=== PATIENT | female | born 1955 | race Caucasian/White ===

== ENCOUNTER → 2016-10-10 | Outpatient (CLI) | payer BC ==
--- NOTE | 2016-10-12 11:02 | MM ---
Reason for exam: screening (asymptomatic). Last mammogram was performed 1 year and 3 months ago. History: Patient is postmenopausal. Physical Findings: A clinical breast exam by your physician is recommended on an annual basis and results should be correlated with mammographic findings. MG Screening Mammo w CAD Bilateral CC and MLO view(s) were taken. Prior study comparison: July 12, 2015, bilateral MG screening mammo w CAD. July 16, 2014, mammogram, performed at [facility]. The breast tissue is heterogeneously dense. This may lower the sensitivity of mammography. There is no discrete abnormality. ASSESSMENT: Negative, BI-RAD 1 RECOMMENDATION: Routine screening mammogram of both breasts in 1 year.
== END | disposition home or self-care (01) ==
LOC: RADMAMWWP 15:32
PROVIDERS: ATTEND Family Medicine
DX: Z12.31 Encounter for screening mammogram for malignant neoplasm of breast (principal)

== ENCOUNTER → 2017-10-29 | Outpatient (CLI) | payer BC ==
--- NOTE | 2017-10-30 08:18 | BD ---
EXAMINATION TYPE: Axial Bone Density DATE OF EXAM: 10/29/2017 COMPARISON: NONE CLINICAL HISTORY: Asymptomatic menopausal state, Z 78.0 Height: 5 FT 2 IN Weight: 150 FRAX RISK QUESTIONS: Family History (Parent hip fracture): UNKNOWN Secondary Osteoporosis: RISK FACTORS HISTORY OF: Active: YES Postmenopausal woman: AGE 56 MEDICATIONS: Additional Medications: NONE Additional History: EXAM MEASUREMENTS: Bone mineral densitometry was performed using the [employer] System. Bone mineral density as measured about the Lumbar spine is: ----- L1-L4(G/cm2): 0.991 T Score Values are as follows: ----- L2: -2.0 ----- L3: -1.0 ----- L4: -1.1 ----- L1-L4: -1.6 BASELINE Bone mineral density about the R hip (g/cm2): 0.791 Bone mineral density about the L hip (g/cm2): 0.772 T Score values are as follows: -----R Neck: -1.8 -----L Neck: -1.9 -----R Total: -2.3 -----L Total: -2.4 BASELINE IMPRESSION: Osteopenia Osteopenia (T Score between -2.5 and 1). There is slightly increased risk of fracture and patient may be considered for treatment. Re-Screen 2-5 years. NOTE: T-SCORE=SD OF THE YOUNG ADULT MEAN.
--- NOTE | 2017-10-30 14:01 | MM ---
Reason for exam: screening (asymptomatic). Last mammogram was performed 1 year and 1 month ago. History: Patient is postmenopausal. Physical Findings: A clinical breast exam by your physician is recommended on an annual basis and results should be correlated with mammographic findings. MG Screening Mammo w CAD Bilateral CC and MLO view(s) were taken. Prior study comparison: October 10, 2016, bilateral MG screening mammo w CAD. July 12, 2015, bilateral MG screening mammo w CAD. The breast tissue is heterogeneously dense. This may lower the sensitivity of mammography. No significant changes when compared with prior studies. ASSESSMENT: Benign, BI-RAD 2 RECOMMENDATION: Routine screening mammogram of both breasts in 1 year.
== END | disposition home or self-care (01) ==
LOC: RADMAMWWP 15:16
PROVIDERS: ATTEND Family Medicine
DX: Z12.31 Encounter for screening mammogram for malignant neoplasm of breast (principal); M85.89 Other specified disorders of bone density and structure, multiple sites; Z78.0 Asymptomatic menopausal state
CPT/HCPCS: 77067; 77080

== ENCOUNTER → 2018-11-29 | Outpatient (CLI) | payer BC ==
[2018-11-29 12:14] LABS: Ionized Calcium 5.6 mg/dL (4.5-5.3)
[2018-11-29 12:26] LABS: ALT 30 U/L (9-52); AST 28 U/L (14-36); African American GFR (CKD) >90 (>60 ml/min/1.73 sqM); Albumin 4.9 g/dL (3.5-5.0); Alkaline Phosphatase 69 U/L (38-126); Anion Gap 10 mmol/L; Blood Urea Nitrogen 14 mg/dL (7-17); Calcium 10.8 mg/dL (8.4-10.2); Carbon Dioxide 25 mmol/L (22-30); Chloride 105 mmol/L (98-107); Glucose 98 mg/dL (74-99); Potassium 4.5 mmol/L (3.5-5.1); Sodium 140 mmol/L (137-145); Total Bilirubin 0.5 mg/dL (0.2-1.3); Total Protein 8.4 g/dL (6.3-8.2)
[2018-12-02 20:22] LABS: Protein, Total 7.5 g/dL (6.2-8.2)
--- NOTE | 2018-12-03 08:27 | MM ---
Reason for exam: screening (asymptomatic). Last mammogram was performed 1 year and 1 month ago. History: Patient is postmenopausal. Benign excisional biopsy of the right breast. Physical Findings: A clinical breast exam by your physician is recommended on an annual basis and results should be correlated with mammographic findings. MG Screening Mammo w CAD Bilateral CC and MLO view(s) were taken. Prior study comparison: October 29, 2017, bilateral MG screening mammo w CAD. October 10, 2016, bilateral MG screening mammo w CAD. The breast tissue is heterogeneously dense. This may lower the sensitivity of mammography. No significant changes when compared with prior studies. ASSESSMENT: Negative, BI-RAD 1 RECOMMENDATION: Routine screening mammogram of both breasts in 1 year.
[2018-12-03 12:24] LABS: Gamma Globulin 1.22 g/dL (0.70-1.50)
--- NOTE | 2018-12-04 11:05 | HM ---
HOLTER MONITOR REPORT The patient was monitored for 24 hours. Baseline rhythm is a sinus mechanism with normal conduction. The average rate 72 beats per minute, minimum 56, and maximum 126 beats per minute. Ventricular ectopic activity is present in form of rare single PVCs with rare couplets. Supraventricular ectopic activity was present in the form of rare single PACs. No symptoms were reported. CONCLUSION: 1. Sinus mechanism baseline rhythm. 2. Rare ventricular ectopic activity. 3. Rare supraventricular ectopic activity. 4. No symptoms well reported. MMODL / IJN: [id number] /
== END | disposition home or self-care (01) ==
LOC: RADMAMWWP 11:14
PROVIDERS: ATTEND Family Medicine
DX: Z12.31 Encounter for screening mammogram for malignant neoplasm of breast (principal); I49.3 Ventricular premature depolarization; E88.09 Other disorders of plasma-protein metabolism, not elsewhere classified; E83.52 Hypercalcemia
CPT/HCPCS: 36415; 77067; 80053; 82330; 83970; 84165; 93225; 93226

== ENCOUNTER → 2018-12-12 | Outpatient (CLI) | payer BC ==
--- NOTE | 2018-12-12 14:15 | US ---
EXAMINATION TYPE: US groin RT DATE OF EXAM: 12/12/2018 COMPARISON: NONE CLINICAL HISTORY: R59.0 ENLARGED LYMPH NODES. Right groin pain x 1 month TECHNIQUE: Grayscale and color imaging were performed of the left and right groin. Right groin was sc anned in the patient's area of pain and left groin was scanned for comparison. FINDINGS: Right groin: 2 lymph nodes seen at patient's area of concern measuring 2.1 x 0.5 x 1.1cm and 1.4 x 0. 5 x 1.2cm Left groin for comparison: 2 lymph nodes seen measuring 1.4 x 0.5 x 0.8cm and 1.7 x 0.3 x 0.5cm Lymph nodes of both groin appear morphologically normal with maintain fatty kelley. Short axis is nonen larged. No other solid or cystic masses seen. IMPRESSION: Bilateral nonenlarged, morphologically normal-appearing superficial inguinal lymph nodes .
== END | disposition home or self-care (01) ==
LOC: RADUSWWP 13:29
PROVIDERS: ATTEND Family Medicine
DX: R59.0 Localized enlarged lymph nodes (principal)

== ENCOUNTER → 2019-11-24 | Outpatient (CLI) | payer BC ==
--- NOTE | 2019-11-24 16:55 | XR ---
EXAMINATION TYPE: XR skull complete DATE OF EXAM: 11/24/2019 COMPARISON: NONE HISTORY: MRI clearance TECHNIQUE: 4 views FINDINGS: There is apparent old right temporal craniotomy defect. Calvarium is otherwise intact. Sell a turcica appears normal. There is no sign of radiopaque foreign body. IMPRESSION: No foreign body seen.
== END | disposition home or self-care (01) ==
LOC: RAD 16:27
PROVIDERS: ATTEND Physical Medicine & Rehabilitation
DX: Z18.10 Retained metal fragments, unspecified (principal)
CPT/HCPCS: 70260

== ENCOUNTER → 2019-12-26 | Outpatient (CLI) | payer BC ==
[2019-12-26 08:16] LABS: Basophils # (A) 0.1 k/uL (0-0.2); Basophils % (A) 1 %; Eosinophils # (A) 0.1 k/uL (0-0.7); Eosinophils % (A) 1 %; HCT 38.8 % (34.0-46.0); HGB 12.7 gm/dL (11.4-16.0); Lymphocytes # (A) 1.1 k/uL (1.0-4.8); Lymphocytes % (A) 12 %; MCH 30.5 pg (25.0-35.0); MCHC 32.6 g/dL (31.0-37.0); MCV 93.7 fL (80.0-100.0); Mean Platelet Volume 7.2; Monocytes # (A) 0.5 k/uL (0-1.0); Monocytes % (A) 5 %; Neutrophils # (A) 7.2 k/uL (1.3-7.7); Neutrophils % (A) 80 %; Platelet Count 346 k/uL (150-450); RBC 4.14 m/uL (3.80-5.40); RDW 13.7 % (11.5-15.5)
[2019-12-26 11:05] LABS: African American GFR (CKD) 111.6 (60.0-200.0); Albumin 4.3 g/dL (3.80-4.90); Albumin/Globulin Ratio 1.72 (1.60-3.17); Anion Gap 8.9 mmol/L (4.00-12.00); Carbon Dioxide 23.1 mmol/L (21.6-31.8); Chol/HDL Ratio 2.24; Globulin 2.5 g/dL (1.6-3.3); LDL Cholesterol,Calculated 92.6 mg/dL (0.0-131.0); Non-African American GFR(CKD) 96.3 (60.0-200.0); Potassium 4.5 mmol/L (3.5-5.5); Total Bilirubin 0.3 mg/dL (0.2-1.2); Total Protein 6.8 g/dL (6.2-8.2); VLDL Calculation 11.4 mg/dL (5.00-40.00)
== END | disposition home or self-care (01) ==
LOC: LABWHC1 12-25 16:24
PROVIDERS: ATTEND Family Medicine
DX: Z00.00 Encounter for general adult medical examination without abnormal findings (principal); R03.0 Elevated blood-pressure reading, without diagnosis of hypertension; Z11.59 Encounter for screening for other viral diseases
CPT/HCPCS: 36415; 80053; 80061; 84443; 85025; 86803

== ENCOUNTER → 2020-01-29 | Outpatient (CLI) | payer BC ==
--- NOTE | 2020-01-30 09:53 | MM ---
Reason for exam: screening (asymptomatic). Last mammogram was performed 1 year and 2 months ago. History: Patient is postmenopausal. Benign excisional biopsy of the right breast. Physical Findings: A clinical breast exam by your physician is recommended on an annual basis and results should be correlated with mammographic findings. MG Screening Mammo w CAD Bilateral CC and MLO view(s) were taken. Prior study comparison: November 29, 2018, bilateral MG screening mammo w CAD. October 29, 2017, bilateral MG screening mammo w CAD. The breast tissue is heterogeneously dense. This may lower the sensitivity of mammography. Stable benign calcifications. There is no discrete abnormality. No significant changes when compared with prior studies. ASSESSMENT: Benign, BI-RAD 2 RECOMMENDATION: Routine screening mammogram of both breasts in 1 year.
== END | disposition home or self-care (01) ==
LOC: RADMAMWWP 16:22
PROVIDERS: ATTEND Family Medicine
DX: Z12.31 Encounter for screening mammogram for malignant neoplasm of breast (principal)
CPT/HCPCS: 77067

== ENCOUNTER → 2020-02-02 | Outpatient (CLI) | payer BC ==
--- NOTE | 2020-02-02 20:04 | BD ---
EXAMINATION TYPE: Axial Bone Density DATE OF EXAM: 02/02/2020 COMPARISON: 10/29/2017 CLINICAL HISTORY: 64-year-old female postmenopausal screening Height: 61 IN Weight: 121 LBS RISK FACTORS HISTORY OF: Active: YES Postmenopausal woman: AGE 56 MEDICATIONS: Additional Medications: MULTI VIT, ALEVE EXAM MEASUREMENTS: Bone mineral densitometry was performed using the [employer] System. Bone mineral density as measured about the Lumbar spine is: ----- L1-L4(G/cm2): 1.028 T Score Values are as follows: ----- L2: -0.5 ----- L3: -0.5 ----- L4: -1.4 ----- L1-L4: -1.3 Bone mineral density has: Increased 5.4% since study of: 10/29/2017 Bone mineral density about the R hip (g/cm2): 0.687 Bone mineral density about the L hip (g/cm2): 0.683 T Score values are as follows: -----R Neck: -2.5 -----L Neck: -2.6 -----R Total: -3.0 -----L Total: -2.8 Bone mineral density has: Decreased -9.4% since study of: 10/29/2017 IMPRESSION: Osteoporosis (T Score less than -2.5). There is increased fracture risk and therapy is usually indicated based on age. Re-Screen 1-2 years. NOTE: T-SCORE=SD OF THE YOUNG ADULT MEAN.
== END | disposition home or self-care (01) ==
LOC: RADBDWWP 16:21
PROVIDERS: ATTEND Obstetrics & Gynecology
DX: M81.0 Age-related osteoporosis without current pathological fracture (principal)
CPT/HCPCS: 77080

== ENCOUNTER → 2021-03-09 | Outpatient (CLI) | payer BC ==
[2021-03-09 10:36] LABS: Basophils # (A) 0.07 X 10*3/uL (0.00-0.10); Basophils % (A) 1.4 %; Eosinophils # (A) 0.18 X 10*3/uL (0.04-0.35); Eosinophils % (A) 3.7 %; HCT 40.6 % (37.2-46.3); HGB 12.7 g/dL (12.0-15.0); Lymphocytes # (A) 1.16 X 10*3/uL (0.90-5.00); Lymphocytes % (A) 23.5 %; MCH 29.1 pg (27.0-32.0); MCHC 31.3 g/dL (32.0-37.0); MCV 92.9 fL (80.0-97.0); Monocytes # (A) 0.44 X 10*3/uL (0.20-1.00); Monocytes % (A) 8.9 %; Neutrophils # (A) 3.07 X 10*3/uL (1.80-7.70); Neutrophils % (A) 62.3 %; Platelet Count 358 X 10*3/uL (140-440); RBC 4.37 X 10*6/uL (4.10-5.20); RDW 13.7 % (11.5-14.5); WBC 4.93 X 10*3/uL (4.50-10.00)
[2021-03-09 11:25] LABS: ALT 20 U/L (8-44); AST 18 U/L (13-35); African American GFR (CKD) 106.2 (60.0-200.0); Albumin 4.6 g/dL (3.8-4.9); Albumin/Globulin Ratio 1.83 (1.60-3.17); Alkaline Phosphatase 55 U/L (41-126); BUN/Creat Ratio 22.37 Ratio (12.00-20.00); Blood Urea Nitrogen 15.3 mg/dL (9.0-27.0); Calcium 10.2 mg/dL (8.7-10.3); Carbon Dioxide 24.2 mmol/L (20.0-27.5); Chloride 103 mmol/L (96-109); Chol/HDL Ratio 2.17 Ratio; Globulin 2.5 g/dL (1.6-3.3); Glucose 90 mg/dL (70-110); LDL Cholesterol,Calculated 104.5 mg/dL (0.0-131.0); Non-African American GFR(CKD) 91.6 (60.0-200.0); Potassium 4.7 mmol/L (3.5-5.5); Sodium 141 mmol/L (135-145); Total Protein 7.2 g/dL (6.2-8.2); VLDL Calculation 13.46 mg/dL (5.00-40.00)
== END | disposition home or self-care (01) ==
LOC: LABWHC1 06:56
PROVIDERS: ATTEND Family Medicine
DX: Z00.00 Encounter for general adult medical examination without abnormal findings (principal)
CPT/HCPCS: 36415; 80053; 80061; 85025

== ENCOUNTER → 2021-03-17 | Outpatient (CLI) | payer BC, MEDICARE ==
--- NOTE | 2021-03-21 13:22 | MM ---
Reason for exam: screening (asymptomatic). Last mammogram was performed 1 year and 2 months ago. History: Patient is postmenopausal and has history of other cancer at age 64. Benign excisional biopsy of the right breast. Physical Findings: A clinical breast exam by your physician is recommended on an annual basis and results should be correlated with mammographic findings. MG Screening Mammo w CAD Bilateral CC and MLO view(s) were taken. Prior study comparison: January 29, 2020, bilateral MG screening mammo w CAD. November 29, 2018, bilateral MG screening mammo w CAD. The breast tissue is heterogeneously dense. This may lower the sensitivity of mammography. No significant changes when compared with prior studies. ASSESSMENT: Benign, BI-RAD 2 RECOMMENDATION: Routine screening mammogram of both breasts in 1 year.
== END | disposition home or self-care (01) ==
LOC: RADMAMWWP 11:55
PROVIDERS: ATTEND Family Medicine
DX: Z12.31 Encounter for screening mammogram for malignant neoplasm of breast (principal); Z78.0 Asymptomatic menopausal state
CPT/HCPCS: 77067

== ENCOUNTER 2021-05-06 11:20 | Day surgery (SDC) | payer BC, MEDICARE ==
[2021-04-29 15:36] VITALS: BMI 23.9
[~2021-05-06 11:20] MED LIST: ACETAMINOPHEN TAB 500 MG TAB PO PRN; DEXAMETHASONE SOD PHOSPHATE 10 MG/ML 1 ML VIAL IV PRN; DOCUSATE 100 MG CAP PO PRN; FAMOTIDINE 20 MG/2 ML VIAL IVP PRN; HYDROmorphone 0.5 MG/0.5 ML SYRINGE IVP PRN; KETOROLAC 15 MG/ML 1 ML VIAL IVP PRN; MIDAZOLAM 2 MG/2 ML VIAL IV PRN; ONDANSETRON 4 MG/2 ML VIAL IVP PRN; ROPIVACAINE/EPI/CLONIDINE/KET 50 ML SYRINGE MISCELLANE PRN; TRANEXAMIC ACID 1,000 MG in SODIUM CHLORIDE 0.9% 100 ML IVPB ONE; TRANEXAMIC ACID 1,000 MG in SODIUM CHLORIDE 0.9% 100 ML IVPB PRN; VANCOMYCIN 1,000 MG in SODIUM CHLORIDE 0.9% 250 ML IVPB PRN; oxyCODONE ER 10 MG TAB.ER.12H PO PRN
[2021-05-06] MEDS ORDERED: LACTATED RINGERS 1,000 ML IV ONE ×2 (11:53→15:40)
[2021-05-06] MEDS ORDERED: TRANEXAMIC ACID 1,000 MG/10 ML VIAL ONE (13:06)
[2021-05-06] MEDS ORDERED: LIDOCAINE 1% INJ 10MG/ML (20 ML MDV) ONE (13:06)
[2021-05-06] MEDS ORDERED: SODIUM CHLORIDE 0.9% 100 ML BAG ONE (13:06)
[2021-05-06] MEDS ORDERED: GLYCOPYRROLATE 0.2 MG/ML 2 ML VIAL ONE (13:06)
[2021-05-06] MEDS ORDERED: KETAMINE 10 MG/ML 20 ML VIAL ONE (13:06)
[2021-05-06] MEDS ORDERED: fentaNYL (PF) 50 MCG/ML 2 ML AMP ONE (13:06)
[2021-05-06] MEDS ORDERED: PROPOFOL 10 MG/ML 20 ML VIAL IV ONE (13:06)
[2021-05-06] MEDS ORDERED: NEOSTIGMINE 1 MG/ML 10 ML VIAL ONE (13:06)
[2021-05-06] MEDS ORDERED: MIDAZOLAM 2 MG/2 ML VIAL ONE (13:06)
[2021-05-06] MEDS ORDERED: ROCURONIUM 10 MG/ML (5 ML VIAL) IV ONE (13:06)
--- NOTE | 2021-05-06 15:53 | FL ---
Fluoroscopy HISTORY: Osteoarthritis right hip, hip arthroplasty 55 seconds fluoroscopy time supplied to the referring clinician. 6 intraoperative C-arm images docum ent the procedure. See dictated report from orthopedic surgery.
--- NOTE | 2021-05-06 15:57 | P.OP ---
Date of Procedure: 05/06/21 Preoperative Diagnosis: 1. Right hip osteoarthritis 2. Osteoporosis 3. Degenerative lumbar spinal disease Postoperative Diagnosis: 1. Severe right hip arthritis 2. Osteoporosis 3. Degenerative lumbar spine disease Procedure(s) Performed: Right direct anterior total hip arthroplasty Implants: 1. Eloina Trident II 50-mm cup 2. Mcgehee accolade C standard offset size #4 stem 3. Dual mobility femoral head - 38 mm OD, 22 mm ID +0 neck (A Dual mobility articulation was used due to the patient's severe lumbar spinal stenosis and concern for abnormal spinal pelvic motion) Anesthesia: SHELBIE Surgeon: Constantin Coello Machine Baster #1: Ashlee Vergara Estimated Blood Loss (ml): 200 IV fluids (ml): 1,200 Pathology: none sent Condition: stable Disposition: PACU Indications for Procedure: I had a long discussion with the patient in the office on the potential risks and complications of an elective total hip replacement through a direct anterior approach. Risks discussed include, but are certainly not limited to, risks from anesthesia, superficial infection requiring local wound care or antibiotics, deep juju-prosthetic joint infection and the treatment required to eradicate infection, intraoperative fracture, postoperative periprosthetic fracture, damage to local blood vessels or nerves particularly the lateral femoral cutaneous nerve, delayed wound healing requiring local wound care or possibly surgical debridement, hip dislocation, leg length discrepancy, soft tissue irritation around the total hip implant such as iliopsoas tendinitis or trochanteric bursitis, wear and osteolysis from the implants, squeaking or audible noises, groin pain, thigh pain, heterotopic ossification, stiffness, aseptic loosening of the implants, dissatisfaction with surgical outcome, need for revision surgery, DVT, PE, swelling of the operative extremity, acute coronary event, stroke, failure to thrive, and possibly loss of life or limb. The patient understands that while these are the most common complications after an elective hip replacement there are certainly other less common complications possible. They were given ample time to ask questions regarding the potential complications of a hip replacement. Following our discussion the patient provided their verbal and written consent to go forward with an elective total hip replacement. Operative Findings: Due to the patient's preoperative diagnosis of osteoporosis, preoperative imaging showing osteopenia on plain radiographs, and very poor bone quality intraoperatively the decision was made to use cemented fixation of the femoral stem to lower the risk of periprosthetic fracture. Description of Procedure: The patient was identified in the preoperative holding area and the correct hip was marked with my initials. I reviewed the procedure and consent with the patient. All of their questions were answered. The patient was then brought back into the operating room by anesthesia. [facility] was administered by the anesthesia team. Preoperative antibiotics and tranexamic acid were also given. After the patient was under anesthesia I examined their ankles to determine their preoperative leg length discrepancy. The skin over the anterior aspect of the hip was shaved to remove hair over the site of planned incision. Both feet and ankles were padded with webril and boots for the [place] were applied. The patient was then carefully transferred onto the [place] table. A perineal post was immediately placed. The arms were placed on arm holders and were well-padded. Both boots were secured to the spars on the [place] table. The patient was positioned so that the pelvis was centered over the post. Nonsterile drapes were applied. A timeout was performed identifying the correct patient, operative extremity, and procedure. At this point fluoroscopy was brought in to take preoperative images of the pelvis and operative hip. Using the standing AP pelvis from the office as a template, a comparable image was obtained with fluoroscopy. A metallic bar was used to create a bi-ischial line for use as a reference to leg length adjustments during the procedure. Global offset was also measured on both the operative and nonoperative leg. Fluoroscopy was then brought out and a pre-scrub using a chlorhexidine scrub brush was performed. The operative limb was then prepped and draped in the standard sterile fashion. An anterior longitudinal incision was made lateral and distal to the ASIS. The skin and subcutaneous tissues were incised sharply. The underlying tensor fascia was identified and incised in its midportion. The fascia was dissected free from the underlying muscle and the muscle belly was retracted. A blunt tipped cobra retractor was placed over the superior neck under the muscle fibers of the gluteus minimus. The deep enveloping fascia of the tensor was incised. The anterior leash of vessels were then identified and cauterized. The fascia between the rectus and the capsule was then incised and the pre-capsular fat was excised. A second Cobra was placed inferior to the neck. The interval between the rectus and iliocapsularis and the hip capsule was developed and a retractor was placed carefully over the anterior rim of the acetabulum. A T-shaped anterior capsulotomy was performed. The superior capsular leaflet was left in place in the inferior capsular flap was excised. The Cobra retractors were placed intracapsularly. We then made a femoral neck osteotomy according to preoperative and intraoperative templating and confirmed the level of the osteotomy using fluoroscopic imaging. The femoral head was removed, passed off to the back table, and sized. The superior capsular flap was excised. Retrac tors were placed circumferentially exposing the acetabulum. We then circumferentially debrided the acetabulum free of labrum and osteophytes. The pulvinar was removed to fully visualize the cotyloid fossa. We then sequentially reamed to achieve peripheral fit and excellent bleeding subchondral bone. The socket was thoroughly irrigated. The acetabular component was impacted into the appropriate position using fluoroscopy to guide version, inclination, and depth of insertion taking care to have a comparable image of the AP pelvis to the standing image taken in the office. An excellent press-fit was achieved and final position was confirmed using fluoroscopy. The press fit was augmented with bony cancellus dome screws. The liner was then impacted into the socket. Attention was then turned to the femur. The remnant dorsal lateral capsule was excised. The short external rotators were visible and protected. A bone hook was used to confirm appropriate translation of the trochanter away from the acetabulum. The leg was then extended and adducted and the bone hook was used to elevate the femur for broaching. On inspection of the patient's proximal femur, they appeared to have poor bone quality so I elected to proceed with cemented fixation of the femoral component. A box osteotome and blunt tipped canal sound was then utilized to gain access to the femoral canal. We then sequentially broached the femur in appropriate anteversion until torsional stability was achieved and the implant was felt to have reached the appropriate size to allow trialing. The neck cut was brought flush to the trial broach with a calcar planar. A trial neck and head were then placed onto the broach and the hip was atraumatically reduced under direct visualization. External rotation to 90 was performed to assess stability. Fluoroscopy was brought in. An AP and lateral fluoroscopic image of the proximal femur was obtained to assess position and fill of the trial broach. An AP of the pelvis was then obtained and matched to the preoperative image taken. A bi-ischial bar was then placed and measurements were taken to assess changes in length and offset. The hip was then carefully dislocated, the proximal femur was exposed, and the trial implants were removed. The proximal femur was then prepared for cementing. The canal was thoroughly irrigated with pulsatile lavage to remove blood and marrow contents. A cement restrictor was placed to a depth just distal to the tip of the final implant. Epinephrine-soaked gauze was then packed into the proximal femur. 2 bags of cement were then mixed using a centrifuge and placed into a cement gun. Anesthesia was notified that cementing was about to commence to make sure the patient was appropriately ventilated and hydrated. Once the cement had reached appropriate consistency, the cement gun was used to fill the canal in a retrograde fashion starting at the restrictor. Cement was then pressurized into the canal with a blue tipped calculator operator. The stem was then carefully introduced into the cement taking care to guide the implant into appropriate version. The stem was held in position until the cement had fully set. All extra cement was removed while the cement was hardening. The trunnion was cleansed and the final head was tapped into place to engage the Og taper. The acetabulum was irrigated and visualized to be free of debris. The hip was carefully reduced. Stability was checked clinically with external rotation to 90 and there was no evidence of instability. Final fluoroscopic images were taken. The wound was then thoroughly irrigated and soaked with a dilute Betadine rinse for 3 minutes. 3 L of sterile saline was irrigated through the wound using pulsatile lavage. Local anesthetic cocktail was injected into the soft tissues around the surgical field. A deep drain was placed. The wound was then closed in layers. A sterile dressing was placed over the surgical incision and drain site. The drapes were taken down and the patient was carefully transferred off of the [place] table. Following removal of the boots the leg lengths felt acceptable. The patient was then taken to recovery room having tolerated the procedure well. Ashlee Vergara PA-C was required as a skilled assistant laboratory director for patient positioning, surgical exposure, retraction, placement of implants, and closure of the surgical wound. PLAN: The patient can weight-bear as tolerated on the operative extremity. 2 doses of postoperative antibiotics. DVT prophylaxis with aspirin 81 mg twice a day based on preoperative risk stratification. Physical therapy for gait training. Discontinue drain postoperative day #1 if output is less than 100 mL per shift.
[2021-05-06] MEDS ORDERED: HYDROcodone/APAP 5-325MG 1 EACH TAB PO PRN (16:06)
[2021-05-06] MEDS ORDERED: hydrOXYzine pamoate 25 MG CAP PO PRN (16:06)
[2021-05-06] MEDS ORDERED: HYDROmorphone 1 MG/ML 1 ML SYRINGE IVP PRN ×2 (16:06)
[2021-05-06] MEDS ORDERED: NALOXONE 0.4 MG/ML 1 ML VIAL IV PRN (16:06)
[2021-05-06] MEDS ORDERED: HYDROmorphone 0.2 MG/1 ML SYRINGE IVP PRN (16:06)
[2021-05-06] MEDS: LACTATED RINGERS 1,000 ML IV SCH (17:32)
[2021-05-06] MEDS ORDERED: SENNOSIDES-DOCUSATE SODIUM 1 EACH TAB PO SCH (21:00)
[2021-05-06] MEDS: ASPIRIN 81 MG PO SCH (21:19)
[2021-05-06] MEDS: HYDROcodone/APAP 5-325MG 1 EACH TAB PO PRN (23:34)
[2021-05-07 03:20] VITALS: RESP 15
[2021-05-07] MEDS: HYDROcodone/APAP 5-325MG 1 EACH TAB PO PRN (05:09)
[2021-05-07] MEDS: LACTATED RINGERS 1,000 ML IV SCH (06:16)
[2021-05-07 07:32] VITALS: BP 120/70; PULSE 84; TEMP 98.8
[2021-05-07 08:54] LABS: Basophils # (A) 0.03 X 10*3/uL (0.00-0.10); Basophils % (A) 0.3 %; Eosinophils # (A) 0.01 X 10*3/uL (0.04-0.35); Eosinophils % (A) 0.1 %; HGB 9.4 g/dL (12.0-15.0); Immature Grans, Automated 0.4 %; Lymphocytes # (A) 1.92 X 10*3/uL (0.90-5.00); Lymphocytes % (A) 20.1 %; MCH 30.1 pg (27.0-32.0); MCHC 32.4 g/dL (32.0-37.0); MCV 92.9 fL (80.0-97.0); Mean Platelet Volume 9.9 fL (9.5-12.2); Monocytes # (A) 0.73 X 10*3/uL (0.20-1.00); Monocytes % (A) 7.6 %; NRBC Per 100 WBC 0 /100 WBCS (0.0-0.0); Neutrophils # (A) 6.83 X 10*3/uL (1.80-7.70); Neutrophils % (A) 71.5 %; Platelet Count 319 X 10*3/uL (140-440); RBC 3.12 X 10*6/uL (4.10-5.20); RDW 14.6 % (11.5-14.5); WBC 9.56 X 10*3/uL (4.50-10.00)
[2021-05-07] MEDS: ASPIRIN 81 MG PO SCH (09:04)
--- NOTE | 2021-05-07 09:47 | P.DS ---
Providers Expected date of discharge: 05/07/21 Attending physician: Constantin Coello Consults: 05/06/21 16:06 Consult Physician Routine Consulting Provider: Roger Askew Consult Reason/Comments: medical management Do you want consulting provider notified?: Yes Primary care physician: Marcia Garcia [facility] Course: This is a 65-year-old female with known history of degenerative arthritis of the right hip. The patient presents for evaluation. After discussion and consideration patient elects to proceed with right total hip arthroplasty with Dr. Coello. The patient is seen preoperatively by Dr. Garcia and cleared for surgery. Patient is admitted to [facility] on 05/06/21 for right total hip arthroplasty. The procedures performed without complication or sequelae. The patient is doing well postoperatively. Labs and vital signs are stable on day of discharge. Patient is seen and examined bedside by Dr. Coello this morning. On day of discharge patient's hip incision is healing well. There is minimal erythema. There is no drainage noted at this time. There is minimal soft tissue swelling to the right hip and thigh. Patient has full foot and ankle motion without difficulty or pain. Neurovascular status to the right lower extremity is intact. Patient is discharged to home in good condition today, pending medical clearance. Please see med rec for accurate list of discharge medications. Plan - Discharge Summary Discharge Rx Participant: Yes New Discharge Prescriptions: New Docusate [Colace] 100 mg PO BID #60 capsule Omeprazole 40 mg PO DAILY 30 Days #30 cap Aspirin 81 mg PO BID 30 Days #60 tab HYDROcodone/APAP 5-325MG [Kenna 5-325] 1 tab PO Q6HR PRN 7 Days #28 tab PRN Reason: Pain No Action traMADol HCL [Ultram] 50 mg PO BID PRN PRN Reason: Pain Multivitamins, Thera [Multivitamin (formulary)] 1 tab PO DAILY Ibuprofen [Motrin] 800 mg PO Q8H PRN PRN Reason: Pain Discharge Medication List Ibuprofen [Motrin] 800 mg PO Q8H PRN 04/29/21 [History] Multivitamins, Thera [Multivitamin (formulary)] 1 tab PO DAILY 04/29/21 [History] traMADol HCL [Ultram] 50 mg PO BID PRN 04/29/21 [History] Aspirin 81 mg PO BID 30 Days #60 tab 05/07/21 [Rx] Docusate [Colace] 100 mg PO BID #60 capsule 05/07/21 [Rx] HYDROcodone/APAP 5-325MG [Kenna 5-325] 1 tab PO Q6HR PRN 7 Days #28 tab 05/07/21 [Rx] Omeprazole 40 mg PO DAILY 30 Days #30 cap 05/07/21 [Rx] Follow up Appointment(s)/Referral(s): Constantin Coello MD [Medical Doctor] - 2 Weeks Activity/Diet/Wound Care/Special Instructions: Weight-bear as tolerated on operative leg with a walker. Keep operative dressings intact until follow-up appointment in the office. Aspirin 81 mg twice a day for DVT prophylaxis. Take pain medications as prescribed as needed. Follow up in the office in [address] Coello. Call the office with any questions or concerns,
--- NOTE | 2021-05-07 10:16 | P.CONS ---
History of Present Illness - Reason for Consult Perioperative complication management Past Medical History Past Medical History: Cancer, Osteoarthritis (OA) Additional Past Medical History / Comment(s): skin cancer History of Any Multi-Drug Resistant Organisms: None Reported Past Surgical History: Section, Cholecystectomy, Orthopedic Surgery, Tubal Ligation Additional Past Surgical History / Comment(s): skin cancer removed from face, D&C, craniotomy for benign tumor, ganglion cyst removed left wrist, TRH Ant. Past Anesthesia/Blood Transfusion Reactions: No Reported Reaction, Unable to Obtain Additional Past Anesthesia/Blood Transfusion Reaction / Comm: adopted Past Psychological History: No Psychological Hx Reported Smoking Status: Never smoker Past Alcohol Use History: Occasional Past Drug Use History: None Reported - Past Family History Mother Family Medical History: Unable to Obtain Additional Family Medical History / Comment(s): adopted Medications and Allergies Home Medications Medication Instructions Recorded Confirmed Type Ibuprofen [Motrin] 800 mg PO Q8H PRN 04/29/21 04/29/21 History Multivitamins, Thera [Multivitamin 1 tab PO DAILY 04/29/21 04/29/21 History (formulary)] traMADol HCL [Ultram] 50 mg PO BID PRN 04/29/21 04/29/21 History Aspirin 81 mg PO BID 30 Days #60 tab 05/07/21 Rx Docusate [Colace] 100 mg PO BID #60 capsule 05/07/21 Rx HYDROcodone/APAP 5-325MG [Diablo 1 tab PO Q6HR PRN 7 Days #28 tab 05/07/21 Rx 5-325] Omeprazole 40 mg PO DAILY 30 Days #30 cap 05/07/21 Rx Allergies Allergy/AdvReac Type Severity Reaction Status Date / Time No Known Allergies Allergy Verified 04/29/21 15:26 Physical Exam Vitals: Vital Signs Temp Pulse Pulse Pulse Resp BP Pulse Ox 05/07/21 07:15 98.8 F 84 120/70 97 05/07/21 01:15 99.1 F 89 15 105/67 95 05/06/21 19:53 88 133/83 97 05/06/21 19:08 98 133/86 98 05/06/21 18:53 97 131/84 98 05/06/21 18:38 91 136/87 99 05/06/21 18:23 90 138/87 99 05/06/21 18:15 90 138/87 96 05/06/21 18:03 97.8 F 89 16 148/80 99 05/06/21 17:01 70 16 138/78 97 05/06/21 16:45 71 18 155/79 98 05/06/21 16:31 72 18 156/78 100 05/06/21 16:16 77 18 169/81 97 05/06/21 16:04 97.5 F L 85 16 177/86 100 05/06/21 11:52 97.6 F 92 18 141/83 97 Intake and Output 05/06/21 05/07/21 05/07/21 22:59 06:59 14:59 Intake Total 550 Output Total 200 600 Balance 350 -600 Intake: IV 550 Output: Urine 600 Estimated Blood Loss 200 Other: # Voids 1 # Bowel Movements 0 Weight 60.7 kg Results CBC & Chem 7: 05/07/21 05:58 Labs: Abnormal Lab Results - Last 24 Hours (Table) 05/07/21 Range/Units 05:58 RBC 3.12 L (4.10-5.20) X 10*6/uL Hgb 9.4 L (12.0-15.0) g/dL Hct 29.0 L (37.2-46.3) % RDW 14.6 H (11.5-14.5) % Eosinophils # 0.01 L (0.04-0.35) X 10*3/uL
== END 2021-05-07 13:15 | disposition home or self-care (01) ==
LOC: OR 11:20 → 4SSUR 16:49 → OR 05-07 13:15
PROVIDERS: ATTEND Orthopaedic Surgery
DX: M16.11 Unilateral primary osteoarthritis, right hip (principal); M25.751 Osteophyte, right hip; M81.0 Age-related osteoporosis without current pathological fracture; I10 Essential (primary) hypertension; M48.061 Spinal stenosis, lumbar region without neurogenic claudication; M51.36 Other intervertebral disc degeneration, lumbar region; Z97.3 Presence of spectacles and contact lenses; Z85.828 Personal history of other malignant neoplasm of skin; Z98.891 History of uterine scar from previous surgery; Z90.49 Acquired absence of other specified parts of digestive tract; Z98.890 Other specified postprocedural states; Z84.89 Family history of other specified conditions; Z79.1 Long term (current) use of non-steroidal anti-inflammatories (NSAID); Z79.899 Other long term (current) drug therapy; Z98.51 Tubal ligation status
CPT/HCPCS: 97161; 86900; 86901; 85025; 86850; 88300; 73502; 27130; C1776; J2250; J0171; J3370; J1100; J2710; J0690 ×2; J2405; J2001; J3010; J1885; J2704

== ENCOUNTER 2021-10-05 07:31 | Day surgery (SDC) | payer BC ==
[2021-10-03 12:51] VITALS: BMI 23.6
[~2021-10-05 07:31] MED LIST changes: -ACETAMINOPHEN TAB 500 MG TAB PO PRN; -DEXAMETHASONE SOD PHOSPHATE 10 MG/ML 1 ML VIAL IV PRN; -DOCUSATE 100 MG CAP PO PRN; -FAMOTIDINE 20 MG/2 ML VIAL IVP PRN; -HYDROmorphone 0.5 MG/0.5 ML SYRINGE IVP PRN; -KETOROLAC 15 MG/ML 1 ML VIAL IVP PRN; +LIDOCAINE 1% (10MG/ML) FOR IV START INTRADERMA PRN; -MIDAZOLAM 2 MG/2 ML VIAL IV PRN; -ONDANSETRON 4 MG/2 ML VIAL IVP PRN; -ROPIVACAINE/EPI/CLONIDINE/KET 50 ML SYRINGE MISCELLANE PRN; -TRANEXAMIC ACID 1,000 MG in SODIUM CHLORIDE 0.9% 100 ML IVPB ONE; -TRANEXAMIC ACID 1,000 MG in SODIUM CHLORIDE 0.9% 100 ML IVPB PRN; -VANCOMYCIN 1,000 MG in SODIUM CHLORIDE 0.9% 250 ML IVPB PRN; -oxyCODONE ER 10 MG TAB.ER.12H PO PRN
--- NOTE | 2021-10-05 07:35 | P.GSHP ---
History of Present Illness H&P Date: 10/05/21 CHIEF COMPLAINT: Colon screen HISTORY OF PRESENT ILLNESS: The patient is a 66-year-old female who presents for colon screen. Lower endoscopy was offered for further evaluation and management. PAST MEDICAL HISTORY: Please see list. PAST SURGICAL HISTORY: Please see list. MEDICATIONS: Please see list. ALLERGIES: Please see list. SOCIAL HISTORY: No illicit drug use FAMILY HISTORY: No reports of Crohn disease or ulcerative colitis. REVIEW OF ORGAN SYSTEMS: CONSTITUTIONAL: No reports of fevers or chills. PHYSICAL EXAM: VITAL SIGNS: Stable GENERAL: Well-developed pleasant in no acute distress. HEENT: No scleral icterus. Extraocular movements grossly intact. Moist buccal mucosa. NECK: Supple without lymphadenopathy. CHEST: Unlabored respirations. Equal bilateral excursions. CARDIOVASCULAR: Regular rate and rhythm. Distal 2+ pulses. ABDOMEN: Soft, nontender, nondistended. MUSCULOSKELETAL: No clubbing, cyanosis, or edema. ASSESSMENT: 1. Colon screen. PLAN: 1. Recommend proceeding with a lower endoscopy Past Medical History Past Medical History: Cancer, Osteoarthritis (OA) Additional Past Medical History / Comment(s): Hx skin cancer. History of Any Multi-Drug Resistant Organisms: None Reported Past Surgical History: Section, Cholecystectomy, Joint Replacement, Orthopedic Surgery, Tubal Ligation Additional Past Surgical History / Comment(s): Skin cancer removed from face, D&C, craniotomy for benign tumor, ganglion cyst removed from left wrist, total right hip replacement. Past Anesthesia/Blood Transfusion Reactions: No Reported Reaction Additional Past Anesthesia/Blood Transfusion Reaction / Comment(s): Family Hx unknown - patient adopted. Past Psychological History: No Psychological Hx Reported Smoking Status: Never smoker Past Alcohol Use History: None Reported Past Drug Use History: None Reported - Past Family History Mother History Unknown: Yes Additional Family Medical History / Comment(s): Patient Adopted. Father History Unknown: Yes Additional Family Medical History / Comment(s): Patient Adopted. Medications and Allergies Home Medications Medication Instructions Recorded Confirmed Type Ibuprofen [Motrin] 800 mg PO Q8H PRN 04/29/21 10/03/21 History Multivitamins, Thera [Multivitamin 1 tab PO DAILY 04/29/21 10/03/21 History (formulary)] traMADol HCL [Ultram] 50 mg PO BID PRN 04/29/21 10/03/21 History Fosamax (Unknown Dose) 1 tab PO TU 10/03/21 10/03/21 History Otc Allergy Pill 1 tab PO DAILY 10/03/21 10/03/21 History Allergies Allergy/AdvReac Type Severity Reaction Status Date / Time No Known Allergies Allergy Verified 10/03/21 12:41
[2021-10-05] MEDS: LACTATED RINGERS 1,000 ML IV SCH ×2 (07:55→08:10)
[2021-10-05 08:16] VITALS: TEMP 97.7
[2021-10-05] MEDS ORDERED: PROPOFOL 10 MG/ML 20 ML VIAL IV ONE (08:40)
[2021-10-05 09:28] VITALS: RESP 16
--- NOTE | 2021-10-05 09:50 | P.PCN ---
Date of Procedure: 10/05/21 Description of Procedure: PREOPERATIVE DIAGNOSIS: Colonoscopy screening. POSTOPERATIVE DIAGNOSIS: Colonoscopy screening. OPERATION: Colonoscopy to the cecum, ileocecal valve and appendiceal orifice. SURGEON: Nkechi Marrero MD. ANESTHESIA: MAC. INDICATIONS: The patient is a 66-year-old female who presents for colonoscopy screening. Last colonoscopy 10 years ago. Benefits and risks were described and informed consent was obtained. DESCRIPTION OF PROCEDURE: The patient had undergone Sutab prep. The patient had been brought into the operating room and laid in the left lateral decubitus position. After adequate intravenous sedation, the rectum was examined with 2% lidocaine jelly. No lens assorter al hemorrhoids were encountered. The rectal tone was within normal limits. No lesions were palpated in the rectal vault. An Olympus colonoscope was advanced however terminated to the hepatic flexure due to highly redundant sigmoid colon and risk of rupture with advancement. The prep was excellent. Moderate sigmoid diverticulosis was encountered. No colonic polyps were found up to the hepatic flexure. No evidence of focal colitis was found. Retroflexion of the scope demonstrated grade 1 internal hemorrhoids without active bleeding or inflammation. The colon was desufflated. The patient had tolerated the procedure well. Withdrawal time was over 6 minutes. FINDINGS: Aronchick preparation quality scale 1 (1-5) Internal hemorrhoids, grade 1 No external prolapsed hemorrhoids. Moderate to severe sigmoid diverticulosis Highly redundant sigmoid colon requiring abdominal pressure with termination at hepatic flexure No arteriovenous malformations to the hepatic flexure No adenomatous polyps to the hepatic flexure No focal colitis to the hepatic flexure RECOMMENDATIONS: 1. Recommend barium enema for completion of ascending colon and cecum assessment Plan - Discharge Summary Discharge Rx Participant: No New Discharge Prescriptions: Continue traMADol HCL [Ultram] 50 mg PO BID PRN PRN Reason: Pain Fosamax (Unknown Dose) 1 tab PO Otc Allergy Pill 1 tab PO DAILY Multivitamins, Thera [Multivitamin (formulary)] 1 tab PO DAILY Ibuprofen [Motrin] 800 mg PO Q8H PRN PRN Reason: Pain Discharge Medication List Ibuprofen [Motrin] 800 mg PO Q8H PRN 04/29/21 [History] Multivitamins, Thera [Multivitamin (formulary)] 1 tab PO DAILY 04/29/21 [History] traMADol HCL [Ultram] 50 mg PO BID PRN 04/29/21 [History] Fosamax (Unknown Dose) 1 tab PO TU 10/03/21 [History] Otc Allergy Pill 1 tab PO DAILY 10/03/21 [History] Follow up Appointment(s)/Referral(s): Nkechi Marrero MD [STAFF PHYSICIAN] - 10/25/21 Patient Instructions/Handouts: Diverticulosis (GEN), Diverticulosis Diet (GEN) Activity/Diet/Wound Care/Special Instructions: Repeat colonoscopy in 5 years2026 Discharge Disposition: HOME SELF-CARE
[2021-10-05 10:59] VITALS: BP 146/75; PULSE 68
--- NOTE | 2021-10-05 12:18 | FL ---
EXAMINATION TYPE: FL barium enema DATE OF EXAM: 10/05/2021 COMPARISON: NONE HISTORY: Incomplete complete colonoscopy TECHNIQUE: A single contrast barium enema study is performed. A total of 42 seconds of fluoroscopic time was utilized during procedure and 32 images obtained. 12 ounces liquid Polibar plus diluted wit h water. FINDINGS: Marine Welder view of the abdomen shows overall non-obstructive bowel gas pattern. There is gaseou s distention of the colon related to recent colonoscopy. Postsurgical changes from right total hip ar throplasty. Cholecystectomy clips right upper quadrant. Degenerative changes of the lumbar spine. No evidence of any mass or polyp, obstructing or constricting lesion throughout the colon. No signif icant diverticular disease is noted. Contrast is demonstrated within the cecum. Contrast is demonstra juan within the appendix on the RPO post evacuation film. Tortuous appearance of the sigmoid colon and splenic flexure. IMPRESSION: Normal barium enema study.
== END 2021-10-05 11:00 | disposition home or self-care (01) ==
LOC: ORWHC2ENDO 07:31
PROVIDERS: ATTEND Surgery Plastic and Reconstructive Surgery
DX: Z12.11 Encounter for screening for malignant neoplasm of colon (principal); K57.30 Diverticulosis of large intestine without perforation or abscess without bleeding; K64.0 First degree hemorrhoids; Z96.641 Presence of right artificial hip joint; Z90.49 Acquired absence of other specified parts of digestive tract; M47.816 Spondylosis without myelopathy or radiculopathy, lumbar region; Z85.828 Personal history of other malignant neoplasm of skin; Z79.899 Other long term (current) drug therapy
CPT/HCPCS: 74270; 45378; J2704

== ENCOUNTER → 2022-03-20 | Outpatient (CLI) | payer BC ==
--- NOTE | 2022-03-21 10:09 | BD ---
EXAMINATION TYPE: Axial Bone Density DATE OF EXAM: 03/20/2022 COMPARISON: NONE CLINICAL HISTORY: 66 years year old Female. ICD-10 CODE: M85.88 Z12.31 Height: 5 FT 2 IN Weight: 137 FRAX RISK QUESTIONS: Alcohol (3 or more units per day): NO Family History (Parent hip fracture): UNKNOWN Glucocorticoids (More than 3mos): NO (Ex: prednisone, prednisolone, methylprednisolone, dexamethasone, and hydrocortisone). History of Fracture in Adulthood: YES Secondary Osteoporosis: 1. Type 1 Diabetes: NO 2. Hyperthyroidism: NO 3. Menopause before 45: NO 4. Malnutrition: NO 5. Chronic liver disease: NO Rheumatoid Arthritis: NO Current Tobacco Use: NO RISK FACTORS HISTORY OF: Surgery to Spine/Hip(right/left)/Wrist (right/left): RT HIP REPLACEMENT When: 2021 Family History of Osteoporosis: UNKNOWN Active: YES Diet low in dairy products/other sources of calcium: NO Postmenopausal woman: YES Take estrogen and/or progesterone medications: NO Lost more than 2 inches in height since high school: NO Frequent falls: NO Poor Health: GOO Hyperparathyroidism: NO Adrenal Insufficiency: NO MEDICATIONS: Osteoporosis Medications: YES Which medication: FOSAMAX How Lon-4 YEARS Additional Medications: FOSAMAX, Additional History: EXAM MEASUREMENTS: Bone mineral densitometry was performed using the [employer] System. Bone mineral density as measured about the Lumbar spine is: ----- L1-L4(G/cm2): 1.094 T Score Values are as follows: ----- L1: -2.7 ----- L2: -1.3 ----- L3: -0.4 ----- L4: 0.8 ----- L1-L4: -0.7 Bone mineral density has: INCREASED 7.0 % since study of: 2019 Bone mineral density about the L hip (g/cm2): 0.701 T Score values are as follows: -----L Neck: -2.4 -----L Total: -2.7 Bone mineral density has: INCREASED 1.7 % since study of: 2019 FRAX%s: The graph provided illustrates a 13.6 % chance for a major osteoporotic fx and a 2.9 % chance for the hips probability for fx in 10 years time. IMPRESSION: Osteoporosis (T Score less than -2.5). There is increased fracture risk and therapy is usually indicated based on age. Re-Screen 1-2 years. NOTE: T-SCORE=SD OF THE YOUNG ADULT MEAN.
--- NOTE | 2022-03-21 18:53 | MM ---
Reason for Exam: Screening (asymptomatic). Last screening mammogram was performed 12 month(s) ago. Patient History: Menarche at age 13. First Full-Term at age 25. Postmenopausal. Other cancer, age 64. Benign Excisional Biopsy on the right side. Risk Values: Giulia 5 year model risk: 2.2%. NCI Lifetime model risk: 7.9%. Prior Study Comparison: 11/29/2018 Bilateral Screening Mammogram, [facility]. 01/29/2020 Bilateral Screening Mammogram, [facility]. 03/17/2021 Bilateral Screening Mammogram, [facility]. Tissue Density: There are scattered fibroglandular densities. Findings: Analyzed By CAD. Benign oil cyst calcification posterior upper outer quadrant left breast. Areas of asymmetric density remain unchanged. There is no suspicious group of microcalcifications or new suspicious mass in either breast. Overall Assessment: Benign, BI-RAD 2 Management: Screening Mammogram of both breasts in 1 year. 1. Patient should continue monthly self breast exams. 2. A clinical breast exam by your physician is recommended on an annual basis. 3. This exam should not preclude additional follow-up of suspicious palpable abnormalities. Electronically signed and approved by: Xavi Avery M.D. Radiologist
== END | disposition home or self-care (01) ==
LOC: RADMAMWWP 15:26
PROVIDERS: ATTEND Obstetrics & Gynecology
DX: Z12.31 Encounter for screening mammogram for malignant neoplasm of breast (principal); M81.0 Age-related osteoporosis without current pathological fracture; M85.88 Other specified disorders of bone density and structure, other site; Z78.0 Asymptomatic menopausal state; Z98.890 Other specified postprocedural states
CPT/HCPCS: 77067; 77080

== ENCOUNTER → 2022-03-24 | Outpatient (CLI) | payer BC ==
[2022-03-24 12:08] LABS: Basophils # (A) 0.07 X 10*3/uL (0.00-0.10); Basophils % (A) 1.3 %; Eosinophils # (A) 0.09 X 10*3/uL (0.04-0.35); Eosinophils % (A) 1.6 %; HCT 41.1 % (37.2-46.3); Immature Grans, Automated 0.4 %; Lymphocytes # (A) 1.38 X 10*3/uL (0.90-5.00); MCH 29.8 pg (27.0-32.0); MCHC 31.6 g/dL (32.0-37.0); MCV 94.3 fL (80.0-97.0); Mean Platelet Volume 10.1 fL (9.5-12.2); Monocytes # (A) 0.54 X 10*3/uL (0.20-1.00); Monocytes % (A) 9.8 %; NRBC Per 100 WBC 0 /100 WBCS (0.0-0.0); Neutrophils # (A) 3.42 X 10*3/uL (1.80-7.70); Neutrophils % (A) 61.9 %; Platelet Count 396 X 10*3/uL (140-440); RBC 4.36 X 10*6/uL (4.10-5.20); RDW 13.6 % (11.5-14.5); WBC 5.52 X 10*3/uL (4.50-10.00)
[2022-03-24 12:22] LABS: ALT 24 U/L (8-44); AST 23 U/L (13-35); African American GFR (CKD) 77.2 (60.0-200.0); Albumin 4.8 g/dL (3.8-4.9); Albumin/Globulin Ratio 1.71 (1.60-3.17); Alkaline Phosphatase 59 U/L (41-126); BUN/Creat Ratio 9.56 Ratio (12.00-20.00); Blood Urea Nitrogen 8.6 mg/dL (9.0-27.0); Calcium 10.4 mg/dL (8.7-10.3); Carbon Dioxide 27.4 mmol/L (20.0-27.5); Chloride 103 mmol/L (96-109); Chol/HDL Ratio 2.29 Ratio; Globulin 2.8 g/dL (1.6-3.3); Glucose 103 mg/dL (70-110); LDL Cholesterol,Calculated 109.1 mg/dL (0.0-131.0); Non-African American GFR(CKD) 66.6 (60.0-200.0); Potassium 4.2 mmol/L (3.5-5.5); Sodium 140 mmol/L (135-145); Total Protein 7.6 g/dL (6.2-8.2); VLDL Calculation 17.12 mg/dL (5.00-40.00)
== END | disposition home or self-care (01) ==
LOC: LABWHC1 07:28
PROVIDERS: ATTEND Family Medicine
DX: Z00.00 Encounter for general adult medical examination without abnormal findings (principal)
CPT/HCPCS: 36415; 80053; 80061; 84439; 84443; 85025

== ENCOUNTER → 2022-08-18 | Outpatient (CLI) | payer BC ==
[2022-08-18 08:49] LABS: Appearance,Urine Cloudy (Clear); Bilirubin,Urine Negative (Negative); Blood,Urine Large (Negative); Color,Urine Yellow; Glucose,Urine (UA) Negative (Negative); Ketones,Urine Negative (Negative); Leukocyte Esterase,Urine Large (Negative); Nitrite,Urine Negative (Negative); PH, Urine 6.5 (5.0-8.0); Protein,Urine Negative (Negative); RBC,Urine 118 /hpf (0-5); Specific Gravity,Urine 1.011 (1.001-1.035); Urobilinogen,Urine <2.0 mg/dL (<2.0); WBC,Urine >182 /hpf (0-5)
== END | disposition home or self-care (01) ==
LOC: LABWHC1 07:38
PROVIDERS: ATTEND Family Medicine
DX: R30.0 Dysuria (principal)
CPT/HCPCS: 81001; 87086

== ENCOUNTER → 2023-03-28 | Outpatient (CLI) | payer BC ==
--- NOTE | 2023-03-29 20:04 | MM ---
Reason for Exam: Screening (asymptomatic). Last screening mammogram was performed 12 month(s) ago. Patient History: Menarche at age 13. First Full-Term at age 25. Postmenopausal. Other cancer, age 64. Benign Excisional Biopsy on the right side. Risk Values: Giulia 5 year model risk: 2.2%. NCI Lifetime model risk: 7.6%. Prior Study Comparison: 01/29/2020 Bilateral Screening Mammogram, [facility]. 03/17/2021 Bilateral Screening Mammogram, [facility]. 03/20/2022 Bilateral MG screening mammo w CAD, [facility]. Tissue Density: The breast tissue is heterogeneously dense. This may lower the sensitivity of mammography. Findings: Analyzed By CAD. Unchanged areas of bilateral asymmetric density. There is no suspicious group of microcalcifications or new suspicious mass in either breast. Overall Assessment: Benign, BI-RAD 2 Management: Screening Mammogram of both breasts in 1 year. . Patient should continue monthly self-breast exams. A clinical breast exam by your physician is recommended on an annual basis. This exam should not preclude additional follow-up of suspicious palpable abnormalities. Note on Giulia scores and lifetime risk: 1. A Giulia score greater than 3% is considered moderate risk. If this is the case, consider specialist referral to assess eligibility for a risk reducing agent. 2. If overall lifetime risk for the development of breast cancer is 20% or higher, the patient may qualify for future screening with alternating mammogram and breast MRI. Electronically signed and approved by: Xavi Avery M.D. Radiologist
== END | disposition home or self-care (01) ==
LOC: RADMAMWWP 07:29
PROVIDERS: ATTEND Obstetrics & Gynecology
DX: Z12.31 Encounter for screening mammogram for malignant neoplasm of breast (principal); Z78.0 Asymptomatic menopausal state
CPT/HCPCS: 77067

== ENCOUNTER → 2023-05-25 | Outpatient (CLI) | payer BC ==
[2023-05-25 10:29] LABS: Basophils # (A) 0.08 X 10*3/uL (0.00-0.10); Basophils % (A) 1.4 %; Eosinophils # (A) 0.09 X 10*3/uL (0.04-0.35); Eosinophils % (A) 1.6 %; HCT 40.7 % (37.2-46.3); HGB 13.2 g/dL (12.0-15.0); Lymphocytes # (A) 1.29 X 10*3/uL (0.90-5.00); MCH 30.3 pg (27.0-32.0); MCHC 32.4 g/dL (32.0-37.0); MCV 93.3 FL (80.0-97.0); Mean Platelet Volume 9.9 FL (9.5-12.2); Monocytes # (A) 0.47 X 10*3/uL (0.20-1.00); Monocytes % (A) 8.4 %; NRBC Per 100 WBC 0 X 10*3/uL (0.00-0.01); Neutrophils # (A) 3.67 X 10*3/uL (1.80-7.70); Neutrophils % (A) 65.4 %; Platelet Count 374 X 10*3/uL (140-440); RBC 4.36 X 10*6/uL (4.10-5.20); RDW 13.7 % (11.5-14.5); WBC 5.61 X 10*3/uL (4.50-10.00)
[2023-05-25 11:01] LABS: ALT 21 U/L (8-44); AST 25 U/L (13-35); Albumin 4.6 g/dL (3.8-4.9); Albumin/Globulin Ratio 1.53 Ratio (1.60-3.17); Alkaline Phosphatase 64 U/L (41-126); BUN/Creat Ratio 18.12 Ratio (12.00-20.00); Blood Urea Nitrogen 14.5 mg/dL (9.0-27.0); Carbon Dioxide 25.8 mmol/L (21.6-31.8); Chloride 102 mmol/L (96-109); Chol/HDL Ratio 2.04 Ratio; Glucose 95 mg/dL (70-110); LDL Cholesterol,Calculated 94.2 mg/dL (0.0-131.0); Potassium 4.4 mmol/L (3.5-5.5); Sodium 139 mmol/L (135-145); Total Bilirubin 0.4 mg/dL (0.3-1.2); Total Protein 7.6 g/dL (6.2-8.2)
== END | disposition home or self-care (01) ==
LOC: LABWHC1 06:55
PROVIDERS: ATTEND Family Medicine
DX: Z00.00 Encounter for general adult medical examination without abnormal findings (principal); M81.0 Age-related osteoporosis without current pathological fracture
CPT/HCPCS: 36415; 80053; 80061; 82306; 84443; 85025